=== PATIENT | female | born 1970 | race Caucasian/White ===

== ENCOUNTER → 2024-09-17 | Day surgery (SDC) | payer OTHER ==
[~2024-09-17] MED LIST: DEXAMETHASONE SOD PHOS INJ 4 MG/ML SDV ONE; FENTANYL CITRATE/PF 100MCG/2 ML INJ ONE; FLUOXETINE HCL20 M1 PO; GEMTESA75 MG PO; LIDOCAINE HCL 2% LOCAL INJ 5 ML SDV VIAL INJ ONE; LOSARTAN POTAS100 MG PO; OMEPRAZOLE40 MG PO; ONDANSETRON HCL INJ 2MG/ML 2ML 2 MG/ML VIAL ONE; PROPOFOL IV EMULSION 10 MG/ML 20 ML VIAL ONE; [UNRECOGNIZED DRUG - OTHER] SC; [UNRECOGNIZED DRUG - OTHER] SC
[2024-09-17] MEDS: LACTATED RINGER'S 1,000 ML ONE (08:02)
[2024-09-17 10:25] VITALS: BP 115/71; PULSE 71; RESP 18; O2SAT 99
== END | disposition home or self-care (01) ==
LOC: OR 06:33
PROVIDERS: ATTEND Otolaryngology Otolaryngology/Facial Plastic Surgery
DX: K13.0 Diseases of lips (principal); I10 Essential (primary) hypertension; K76.0 Fatty (change of) liver, not elsewhere classified; Z88.1 Allergy status to other antibiotic agents; Z88.2 Allergy status to sulfonamides; Z79.899 Other long term (current) drug therapy; Z01.810 Encounter for preprocedural cardiovascular examination; Z01.818 Encounter for other preprocedural examination
CPT/HCPCS: 40812; 81025; 88304; 88313; 88342; 93005; J1100; J2003; J2405; J2704; J3010; J7121